=== PATIENT | male | born 1965 | race Caucasian/White ===

== ENCOUNTER 2022-09-06 09:04 | Day surgery (SDC) | payer BC ==
[2022-09-05 13:16] VITALS: BMI 32.6
[2022-09-06] MEDS ORDERED: CEFAZOLIN 2 GM VIAL ONE (12:52)
[2022-09-06] MEDS ORDERED: EPINEPHrine 1 MG/ML AMP ONE (13:01)
[2022-09-06] MEDS ORDERED: Bupivacaine 0.25% HCL 30 ML VIAL ONE ×2 (13:01→13:02)
[2022-09-06] MEDS ORDERED: Fentanyl 100 MCG/2 ML VIAL ONE ×2 (13:03→17:56)
[2022-09-06] MEDS ORDERED: PROPOFOL 20 ML ONE (13:03)
[2022-09-06] MEDS ORDERED: Dexamethasone 4 mg/ml Vial ONE (13:04)
[2022-09-06] MEDS ORDERED: Ondansetron PF 4 MG/2 ML Vial ONE (13:04)
[2022-09-06] MEDS ORDERED: Midazolam HCl 2 mg/2 ml Vial ONE (13:04)
[2022-09-06] MEDS ORDERED: Lidocaine 1% PF 5 ML VIAL ONE (13:04)
[2022-09-06] MEDS ORDERED: Rocuronium Bromide 10 MG/ML (10ML VIAL) ONE (13:07)
[2022-09-06] MEDS ORDERED: Isosulfan Blue 50 MG/5 ML VIAL ONE (13:08)
[2022-09-06] MEDS ORDERED: ePHEDrine Sulfate 50 MG/10 ML VIAL ONE (14:44)
[2022-09-06] MEDS ORDERED: HYDROcodone/Acetaminophen 5/325 mg Tablet ONE (18:50)
== END 2022-09-06 19:35 | disposition home or self-care (01) ==
LOC: CSHNM 09:04
PROVIDERS: ATTEND Plastic Surgery
DX: C43.59 Malignant melanoma of other part of trunk (principal)
CPT/HCPCS: 78195; 88305; 88307; 88341; 88342; A9541; C1713; J0171; J1100; J2250; J2405; J2704; J3010; Q9968; S0020

== ENCOUNTER 2023-04-30 09:24 | Outpatient (CLI) | payer BC | END 2023-04-30 09:25 | disposition home or self-care (01) | LOC: CSHRAD 09:24 | PROVIDERS: ATTEND Family Medicine | DX: M79.661 Pain in right lower leg (principal) ==